=== PATIENT | male | born 1980 | race Caucasian/White ===

== ENCOUNTER 2024-07-12 15:17 | Emergency (ER) | payer BC, SELFPAY ==
[2024-07-12 15:17] VITALS: BMI 28.7
[2024-07-12 15:28] VITALS: BP 146/104
[2024-07-12 16:00] VITALS: BP 133/87
--- NOTE | 2024-07-12 16:49 | ED.GENMED ---
History of Present Illness
General
Chief Complaint: Musculo-Skeletal Complaint
Source: patient
Exam Limitations: none
Time Seen by Provider: 07/12/24 16:09
Nursing documentation reviewed up to this point in time: agreed with
History of Present Illness
History of Present Illness:
Patient is a 44-year-old male presenting with left ankle pain. Patient reports going for a walk/run yesterday when he suddenly felt a 'pop' in his left ankle. He has been unable to bear weight since. Patient reports significant pain in his left
Achilles. Patient denies any numbness/tingling in his left foot. Patient denies any bony tenderness in left ankle or left foot. No pain in left knee.
No other concerns today
Review of Systems
Review of Systems
Allergies reviewed?: Yes
All Other Systems: ROS reviewed and negative except as documented in HPI and ROS
Phy Exam
Physical Exam
Physical Exam:
Vitals: Tachycardic on arrival although resolved by my assessment. Afebrile
General: Patient is well appearing, no acute distress
Skin: Warm and dry, no rashes or lesions
Head: Normocephalic, atraumatic
Throat: Protecting airway
Neck: Normal ROM, no cervical spine tenderness
Cardiac: Regular rate
Pulm: No apparent respiratory distress
Abdomen: Nondistended
Extremities: Mild diffuse edema of left ankle with tenderness over Achilles just superior to calcaneus. Positive Prather test. Significantly reduced ROM in left ankle due to pain. No bony tenderness of foot, ankle, or lower leg. Patient has full
ROM in left knee without pain. Palpable L DP pulse with capillary refill <2 seconds.
Neuro: Grossly intact
Psychiatric: Normal affect.
Course
Orders/Labs/Results
Orders:
Orders
07/12/24 15:31
Calcaneus, Left 2 View [CR Heel/os Calcis - Left 2 Vw*] Urgent
Comment:
Reason For Exam: pain
07/12/24 16:39
Ibuprofen [Motrin] 600 mg PO NOW STA
07/12/24 16:47
Splints/Slings/Crut- Treatment ONCE
Crutches: Yes
Location: Left
Type of Splint: Short Leg
07/12/24 16:48
Crutches-Treatment ONCE
Vital Signs
Initial and Last Documented VS:
Initial Vital Signs
Temp Pulse Resp BP Pulse Ox
98.5 F 112 18 146/104 98
07/12/24 15:28 07/12/24 15:28 07/12/24 15:28 07/12/24 15:28 07/12/24 15:28
Last Documented Vital Signs
Temp Pulse Resp BP Pulse Ox
98.5 F 87 16 133/87 99
07/12/24 15:28 07/12/24 16:00 07/12/24 16:00 07/12/24 16:00 07/12/24 16:00
Procedures
Splinting/Sling Placement
Left Lower Leg:
Procedure completed by: Joslyn Wilcox RN
Pre-splint extermity exam: neurovascular intact
Type of splint: posterior short leg
Splint material: fiberglass
Splint checked by provider?: Yes
Type of sling: sling fitted
Normal distal neurovascular exam?: Yes
MDM/Problems Addressed
Differential Diagnosis Includes:
Not limited to: achilles tendon tear, achilles tendonitis, achilles tendon rupture, gastrocnemius mulsce strain, etc
MDM/Problems Addressed:
44 year old male presenting with severe pain in left ankle near region of achilles and limited ROM. This occurred yesterday while running. No other injuries sustained. Patient tachycardic on arrival although improved by my assessment. Otherwise
vital signs stable. An xray was obtained in triage which shows findings consistent with possible achilles tendonitis. However - on exam patient has mild diffuse swelling of left ankle with significant tenderness to palpation of achilles and a
positive prather test concerning for achilles tendon rupture. LLE neurovascularly intact. Will place patient in posterior short leg splint in plantarflexion and provide crutches. Patient tolerated splinting well. Stable for discharge home with
orthopedic f/u outpatient. Return precautions discussed. Advised rest, ice, elevation, and nonweightbearing until cleared by orthopedics. Patient verbalized understanding.
Chronic conditions affecting care:
N/a
Acute Exacerbation and/or Progression of Chronic Illness:
N/A
*Radiology
Radiology exam reviewed: radiology read reviewed (achilles tendonitis)
*Pulse Oximetry
Patient hypoxic: no
*EKG
Interpreted by ED Provider?: NA
*Managing Director Interpretation
Rate: Managing Director- N/A
*Critical Care Note
Total Time (30-74mins, 75-104mins- exclusive of procedures): Not Applicable
ED Attending Note
-
Portions of this chart may have been created with voice recognition software.� Occasional wrong word or��sound alike� substitutions may have occurred due to the inherent limitations of voice recognition software.
Discharge Plan
Departure
Patient Disposition: Home (Routine Discharge)
Date of Disposition: 07/12/24
Time of Disposition: 17:55
Patient with high blood pressure during this ER visit?: Yes
Discharge Problem:
Rupture of left Achilles tendon
Instructions: Achilles Tendon Rupture (DC), Splint Care, BLOOD PRESSURE
Referrals:
Radhames Clarke MD [Active] - Next open appointment
Annabel Aguilar MD [Family Provider] -
Stand Alone Forms: Return to Work
Activity Restrictions/Additional Instructions:
Return to the emergency department any numbness/tingling in left lower extremity, intractable pain, significant swelling or pain in calf, worsening in current symptoms, or any other concerns
-As discussed�you may have sustained an Achilles tendon rupture. It is important that you keep splint in place and avoid weightbearing until cleared by orthopedics.
-Continue to ice and elevate your left leg as often as possible. Take Motrin/Tylenol as needed for pain. Use crutches to weight-bear until cleared by orthopedics
-Call orthopedics office tomorrow for appointment for further evaluation/management
Monitor symptoms closely and return to the emergency department with any acute worsening/new symptoms or any other concerns
Interventions
Interventions:
*Risk Screen - Suicide Last Done: 07/12/24 15:28
*General Assessment Last Done: 07/12/24 15:28
*Neglect/Abuse Screening Last Done: 07/12/24 15:28
*ED- Fall Risk Assessment Last Done: 07/12/24 15:28
*ED COVID-19 Vaccine History Last Done: 07/12/24 15:28
*Nursing Disposition Last Done: 07/12/24 17:55
ED-Musculoskeletal Assessment Last Done: 07/12/24 16:01
Discharge Date and Time
Discharge Date/Time: 07/12/24 17:57
Print Language: CITIZEN OF [place]
[2024-07-12] MEDS: MOTRIN 600 MG PO (17:03)
== END 2024-07-12 17:57 | disposition home or self-care (01) ==
LOC: EMR 15:17
PROVIDERS: EMERGENCY PHYSICIAN Student in an Organized Health Care Education/Training Program; FAMILY PHYSICIAN Internal Medicine
DX: S86.012A Strain of left Achilles tendon, initial encounter (principal); R60.0 Localized edema; X58.XXXA Exposure to other specified factors, initial encounter; Y93.02 Activity, running; R03.0 Elevated blood-pressure reading, without diagnosis of hypertension
CPT/HCPCS: 99283; 29515; 73650

== ENCOUNTER 2024-07-27 05:55 | Day surgery (SDC) | payer BC, SELFPAY ==
[2024-07-27] VITALS (7 sets, daily range): BP systolic 131–143; BP diastolic 86–99; BMI 29.4
[2024-07-27] MEDS: CELEBREX 200 MG PO (06:13)
[2024-07-27] MEDS: TYLENOL 1000 MG PO (06:13)
[2024-07-27] MEDS: NORMOSOL-R/PLASMALYTE-A 1000 IV (06:40)
[2024-07-27] MEDS: SUBLIMAZE 25 MCG IV (09:04)
== END 2024-07-27 10:00 | disposition home or self-care (01) ==
LOC: SDS 05:55
PROVIDERS: ATTENDING PHYSICIAN Student in an Organized Health Care Education/Training Program
DX: S86.012A Strain of left Achilles tendon, initial encounter (principal); M76.62 Achilles tendinitis, left leg; X50.1XXA Overexertion from prolonged static or awkward postures, initial encounter
CPT/HCPCS: 27650; C1776